=== PATIENT | female | born 1965 | race Caucasian/White ===

== ENCOUNTER → 2017-04-19 | Outpatient (CLI) | payer BC ==
[~2017-04-19] MED LIST: ALLEGRA-D1 TAB 60/1 PO; BUPROPION XL150 MG PO; DICYCLOMINE HCL20 MG PO; FERRO-TIME325 MG PO; MULTI-DAY VITAM1 TAB PO; NO MEDICATIONS; PREMARIN0.625 MG PO; PRILOSEC PO; PRILOSEC40 MG PO; PROTONIX PO; REGLAN10 MG PO; TIGAN PO; TIGAN300 MG PO; WELLBUTRIN PO; ZOFRAN ODT4 MG PO; ZOFRAN PO
--- NOTE | ~2017-04-19 | MY29 ---
[facility] A Service of [facility] & [facility] RADIOLOGY TEXT RESULTS PATIENT: GEORGINA CALDERON LOCATION: [facility] : 63 UNIT #: [id number] AGE: [address]: CASA WALKER MD (INT MED) SEX: F ORDER DR: [id number] [facility] [address] [place], [place] [address] [id number] O MR#: [id number] Acc #: [id number] NAME: GEORGINA CALDERON. : 1965 SEX: F STUDY DATE/TIME: 04/19/2017 8:24 UNIT: [facility] ROOM: STUDY DESCRIPTION: [facility] SCREENING W/ CAD BILAT Attending Physician: Casa Walker M.D. Referring Physician: Casa Walker M.D. Ordering Physician: Casa Walker M.D. Primary Care Physician: Casa Walker M.D. MEDICAL IMAGING REPORT This report is preliminary unless electronic signature is present EXAM Bilateral digital screening implant mammograms 04/19/2017 HISTORY 52-year-old woman previous augmentation. Positive family history, two great aunts. Annual screening. COMPARISON Mammograms date to 05/05/2008 with most recent 04/21/2015. FINDINGS Digital imaging of each breast was completed utilizing conventional projections and standard Ronny views. Bilateral subglandular saline implants are present. Small amount of residual fibroglandular parenchyma projects subareolar and upper outer quadrants in each breast. There is no mass. I see no suspicious microcalcifications and no suspicious architectural deformity. IMPRESSION Negative mammogram. Stable subglandular saline implants. Annual screening recommended. Patients over the age of 40 are entered into a reminder system with target due date for the next mammogram. A result letter will also be sent to the patient. BIRADS: 1 Negative Dictated by... Lonnie Myers M.D. THIS IS AN ELECTRONICALLY VERIFIED REPORT Lonnie Myers M.D. at 04/19/2017 3:53 PM [facility] A Service of [facility] & [facility] RADIOLOGY TEXT RESULTS PATIENT: GEORGINA CALDERON LOCATION: [facility] #: [id number] : 63 UNIT #: [id number] AGE: [address]: CASA WALKER MD (INT MED) SEX: F ORDER DR: Allyssa TD: 04/19/2017 14:52 JOB #: [id number] MEDICAL IMAGING REPORT Page 1 of 1 COPY
== END | disposition home or self-care (01) ==
LOC: CMAM 07:50
DX: Z12.31 Encounter for screening mammogram for malignant neoplasm of breast (principal); Z98.82 Breast implant status; Z80.3 Family history of malignant neoplasm of breast
CPT/HCPCS: G0202